=== PATIENT | male | born 1965 | race African-American/Black ===

== ENCOUNTER → 2018-09-25 | Outpatient (CLI) | payer BC ==
[2018-09-25 12:32] LABS: BASOPHILS % 0.2 % (0.0-1.0); EOSINOPHILS # (AUTO) 0.1 (0.0-0.4); EOSINOPHILS % 1.1 % (0.0-6.0); HEMATOCRIT 40.8 % (38.2-49.6); HEMOGLOBIN 14.8 g/dL (14.0-18.0); LYMPHOCYTES # (AUTO) 2.5 (1.0-3.2); LYMPHOCYTES % 25.1 % (18.0-39.1); MEAN CORPUSCULAR HEMOGLOBIN 29.7 pg (28-32); MEAN CORPUSCULAR HGB CONC 36.3 g/dL (31-35); MEAN CORPUSCULAR VOLUME 81.8 fL (81-99); MONOCYTES # (AUTO) 0.9 (0.2-0.8); MONOCYTES % 8.5 % (4.4-11.3); NEUTROPHILS # (AUTO) 6.5 (2.1-6.9); NEUTROPHILS % 64.7 % (38.7-80.0); PLATELET COUNT 187 x10e3/uL (140-360); RED BLOOD COUNT 4.99 x10e6/uL (4.3-5.7); RED CELL DISTRIBUTION WIDTH 11.9 % (11.7-14.4)
[2018-09-25 13:18] LABS: ALANINE AMINOTRANSFERASE 28 IU/L (0-55); ALBUMIN 4.3 g/dL (3.5-5.0); ALBUMIN/GLOBULIN RATIO 1.4 (0.8-2.0); ALKALINE PHOSPHATASE 67 IU/L (40-150); AMYLASE 58 U/L (25-125); BLOOD UREA NITROGEN 16 mg/dL (7-26); BUN/CREATININE RATIO 17 (6-25); CALCIUM 9.9 mg/dL (8.4-10.2); CARBON DIOXIDE 31 mmol/L (22-29); CHLORIDE 93 mmol/L (98-107); CREATININE, SERUM 0.94 mg/dL (0.72-1.25); EST GLOMERULAR FILTRATION RATE > 60 ML/MIN (60-); GLUCOSE 100 mg/dL (74-118); LIPASE 51 U/L (8-78); SODIUM 133 mmol/L (136-145)
== END ==
LOC: LAB 11:35
PROVIDERS: ATTEND Urology
DX: R10.9 Unspecified abdominal pain (principal)
CPT/HCPCS: 36415; 80053; 82150; 83690; 85025

== ENCOUNTER → 2018-10-02 | Outpatient (CLI) | payer BC ==
[~2018-10-02] MED LIST: DIATRIZOATE MEGL/DIATRIZOA SOD 30 ML BTL PO ONE; IOPAMIDOL 370 MG/ML 200 ML INFUS..BTL INJ ONE; SODIUM CHLORIDE 0.9% 50ML 50 ML ONE
--- NOTE | 2018-10-02 15:37 | Diagnostic Imaging Report ---
ADDENDUM #1 ADDENDUM: CT enterography protocol was performed. Signed by: Dr. Abraham Alvarez MD on 10/02/2018 3:49 PM ORIGINAL REPORT EXAM: CT Abdomen and Pelvis WITH contrast INDICATION: Small bowel obstruction. COMPARISON: Report from CT abdomen/pelvis performed on 09/26/2018, although the images are not available for review. TECHNIQUE: Abdomen and pelvis were scanned utilizing a multidetector helical scanner from the lung base to the pubic symphysis after administration of IV contrast. Coronal and sagittal reformations were obtained. Routine protocol was performed. Scan was performed when during portal venous phase. IV CONTRAST: 100 cc Isovue 370 ORAL CONTRAST: Volumen COMPLICATIONS: None RADIATION DOSE: Total DLP: 679.9 mGy*cm Dose modulation, iterative reconstruction, and/or weight based adjustment of the mA/kV was utilized to reduce the radiation dose to as low as reasonably achievable. FINDINGS: LINES and TUBES: None. LOWER THORAX: Unremarkable HEPATOBILIARY: There are multiple (at least 10) indeterminate hypodense solid lesions in the liver, the largest of which measures 3.3 cm in the inferior aspect of the right hepatic lobe on series 3, image 52. A left hepatic lobe lesion measures up to 2.4 cm on image 29. No biliary ductal dilation. GALLBLADDER: No radio-opaque stones or sludge. No wall thickening. SPLEEN: No splenomegaly. PANCREAS: There is indeterminate 1.4 cm convex area along the pancreatic tail, as seen on series 3, image 44 and coronal image 96. This may represent a lesion, but the density is similar to that of normal pancreas. ADRENALS: No adrenal nodules KIDNEYS/URETERS: Kidneys enhance symmetrically. No evidence of hydronephrosis, solid mass, or stone. There is a 1 cm hypodense lesion in the left mid pole kidney (series 3, image 48; 2 HU), consistent with a cyst. GI TRACT: There are dilated proximal small bowel loops, which measure up to 4.3 cm. There are clumped mid jejunal decompressed loops in the midabdomen on series 3, image 89. There is high-grade focal narrowing within the ileum in the left lower quadrant on image 133. The distal ileum and colon are relatively decompressed. Small hiatal hernia. PELVIC ORGANS/BLADDER: Unremarkable. LYMPH NODES: No lymphadenopathy. VESSELS: There are scattered mild atherosclerotic calcifications in the aorta and branch vessels. PERITONEUM / RETROPERITONEUM: No free air or fluid. BONES AND SOFT TISSUES: Unremarkable. CONCLUSION: Partial small bowel obstruction with multiple transition points in the mid abdomen in the mid jejunum, likely secondary to adhesions/fibrosis, and left lower quadrant in the proximal ileum, likely secondary to stricture. Multiple indeterminant hepatic solid lesions. Differential includes metastatic disease. Liver protocol MRI is recommended for further evaluation. CT Chest is also suggested for further evaluation. Indeterminant 1.4 cm possible lesion along the pancreatic tail. Differential includes peripancreatic lymph node or pancreatic lesion. The pancreas can be further evaluated on liver protocol MRI. Signed by: Dr. Abraham Alvarez MD on 10/02/2018 3:34 PM
== END ==
LOC: CT 12:08
PROVIDERS: ATTEND Internal Medicine
DX: K56.609 Unspecified intestinal obstruction, unspecified as to partial versus complete obstruction (principal); K86.9 Disease of pancreas, unspecified
CPT/HCPCS: 74177; Q9967